=== PATIENT | female | born 1940 | race Hispanic/Latino ===

== ENCOUNTER 2023-07-21 19:04 | Inpatient (IN) | payer OTHER ==
[~2023-07-21] VITALS: Ht 166.4 cm; Wt 90.9 kg
[2023-07-21 20:47] VITALS: BP 150/60; PULSE 48; RESP 18
[2023-07-21 21:00] VITALS: O2SAT 97
[2023-07-21] MEDS ORDERED: 0.9%NACL 10ML VIAL IVP PRN (22:30)
[2023-07-21] MEDS ORDERED: ONDANSETRON 4MG INJ IVP PRN (22:30)
[2023-07-22] VITALS (14 sets, daily range): BP systolic 144–163; BP diastolic 53–76; PULSE 38–80; RESP 14–18; O2SAT 96–97
[2023-07-22] MEDS ORDERED: ONDANSETRON 4MG INJ IV PRN ×2 (00:30→11:00)
[2023-07-22] MEDS ORDERED: MAGNESIUM 2GM PREMIX 50ML 50 ML IV PRN (01:00)
[2023-07-22] MEDS ORDERED: POTASSIUM CHLORIDE 20MEQ/100ML 100 ML IV PRN (01:00)
[2023-07-22] MEDS ORDERED: LEVO88TA7 PO (03:34)
[2023-07-22 04:56] LABS: BASOPHILS # (AUTO) 0.02 K/uL (0.00-0.20); BASOPHILS % (AUTO) 0.3 % (0.0-5.0); EOSINOPHILS # (AUTO) 0.08 K/uL (0.00-0.70); EOSINOPHILS % (AUTO) 1.3 % (0.0-8.0); HEMATOCRIT 40.5 % (36-48); IMMATURE GRANULOCYTE ABSOLUTE 0.02 K/uL (0-1); MEAN CORPUSCULAR HEMOGLOBIN 29.2 pg (27.0-33.0); MEAN CORPUSCULAR HGB CONC 32.1 g/dL (32.0-36.0); MONOCYTES # (AUTO) 0.6 K/uL (0.1-1.0); MONOCYTES % (AUTO) 9.5 % (3.0-13.0); NEUTROPHILS # (AUTO) 3.5 K/uL (1.8-7.7); NEUTROPHILS % (AUTO) 56.6 % (40.0-77.0); PLATELET COUNT (AUTO) 164 K/uL (130-400); RED BLOOD CELL COUNT(AUTO) 4.45 MIL/uL (4.00-5.50); RED CELL DISTRIBUTION WIDTH 13.7 % (11.0-15.5); WHITE BLOOD COUNT (AUTO) 6.2 K/uL (4.8-10.8)
[2023-07-22 05:08] LABS: INR 0.99 (0.85-1.15); PROTHROMBIN TIME 11.5 SEC (9.6-11.6)
[2023-07-22 05:09] LABS: HEMOGLOBIN A1C 6.2 % (4.0-6.0)
[2023-07-22 05:22] LABS: BILIRUBIN,TOTAL 0.5 mg/dL (0.2-1.0); CREATININE 0.9 mg/dL (0.5-1.5); MAGNESIUM 2.1 mg/dL (1.80-2.40); THYROID STIMULATING HORMONE 2.16 uIU/mL (0.36-3.74); TOTAL PROTEIN, SERUM 6.2 g/dL (6.0-8.3)
[2023-07-22 05:24] LABS: B-TYPE NATRIURETIC PEPTIDE 160 pg/mL (0-100)
[2023-07-22] MEDS ORDERED: 0.9%NACL 1000ML 1,000 ML IV SCH (08:00)
[2023-07-22] MEDS ORDERED: 0.9% NACL 250ML 250 ML IV SCH (08:00)
[2023-07-22] MEDS ORDERED: LIDOCAINE HCL 1% MDV 50ML VIAL ONE (08:38)
[2023-07-22] MEDS ORDERED: MIDAZOLAM HCL 1 MG/ML 2ML VIAL ONE ×3 (08:39→09:22)
[2023-07-22] MEDS ORDERED: BUPIVACAINE/PF 0.25% 30ML VIAL IJ ONE (08:39)
[2023-07-22] MEDS ORDERED: MEPERIDINE-PF 25 MG/ML SYG ONE ×3 (08:39→09:22)
[2023-07-22] MEDS ORDERED: IOHEXOL-350 50ML VIAL IV ONE (08:39)
[2023-07-22] MEDS ORDERED: CEFAZOLIN SODIUM 1 GM VIAL ONE (08:43)
[2023-07-22] MEDS: FAMOTIDINE 20MG VIAL IV SCH ×2 (09:00→21:01)
[2023-07-22] MEDS ORDERED: BACITRACIN 1 EACH PACKET TP ONE (10:58)
[2023-07-22] MEDS ORDERED: ACETAMINOPHEN WITH CODEINE 1 TAB TAB PO PRN ×2 (11:00)
[2023-07-22] MEDS ORDERED: TEMAZEPAM 30 MG CAP PO PRN (11:00)
[2023-07-22] MEDS: CEFAZOLIN SODIUM 1 GM VIAL IVPB SCH (17:02)
[2023-07-23] MEDS ORDERED: CEFAZOLIN SODIUM 1 GM VIAL ONE (02:07)
[2023-07-23] MEDS: CEFAZOLIN SODIUM 1 GM VIAL IVPB SCH (02:09)
[2023-07-23 03:59] LABS: HEMATOCRIT 42.4 % (36-48); MEAN CORPUSCULAR HEMOGLOBIN 28.9 pg (27.0-33.0); MEAN CORPUSCULAR HGB CONC 32.3 g/dL (32.0-36.0); MEAN CORPUSCULAR VOLUME 89.5 fL (79-99); RED BLOOD CELL COUNT(AUTO) 4.74 MIL/uL (4.00-5.50); RED CELL DISTRIBUTION WIDTH 13.3 % (11.0-15.5); WHITE BLOOD COUNT (AUTO) 7.1 K/uL (4.8-10.8)
[2023-07-23 04:15] VITALS: BP 164/70; PULSE 77; RESP 18
[2023-07-23 04:22] LABS: ALBUMIN 3.1 g/dL (3.5-5.0); BILIRUBIN,TOTAL 0.8 mg/dL (0.2-1.0); CREATININE 0.8 mg/dL (0.5-1.5); POTASSIUM 3.8 mmol/L (3.5-5.1); TOTAL PROTEIN, SERUM 6.4 g/dL (6.0-8.3)
[2023-07-23] MEDS ORDERED: LEVOTHYROXINE 88 MCG TABLET PO SCH (06:30)
[2023-07-23] MEDS ORDERED: DIPHENHYDRAMINE HCL 25 MG CAPSULE PO PRN (08:00)
[2023-07-23 08:16] VITALS: BP 178/80; PULSE 81; RESP 16
[2023-07-23] MEDS ORDERED: FAMOTIDINE 20MG TAB PO SCH (09:00)
[2023-07-23 12:17] VITALS: BP 165/77; PULSE 83; RESP 16
== END 2023-07-23 15:08 | disposition home or self-care (01) | DRG 244 ==
LOC: EDH 19:04 → DIRECT 19:05 → 2DH 20:25
PROVIDERS: ADMIT Internal Medicine; ATTEND Internal Medicine
PROC: 0JH606Z Insertion of Pacemaker, Dual Chamber into Chest Subcutaneous Tissue and Fascia, Open Approach (ICD-10-PCS; principal; 2023-07-22)
PROC: 02H63JZ Insertion of Pacemaker Lead into Right Atrium, Percutaneous Approach (ICD-10-PCS; 2023-07-22)
PROC: 02HK3JZ Insertion of Pacemaker Lead into Right Ventricle, Percutaneous Approach (ICD-10-PCS; 2023-07-22)
PROC: 4B02XSZ Measurement of Cardiac Pacemaker, External Approach (ICD-10-PCS; 2023-07-22)
DX: I44.1 Atrioventricular block, second degree (principal); E66.9 Obesity, unspecified; I45.10 Unspecified right bundle-branch block; G47.33 Obstructive sleep apnea (adult) (pediatric); R03.0 Elevated blood-pressure reading, without diagnosis of hypertension; E89.0 Postprocedural hypothyroidism; Z80.1 Family history of malignant neoplasm of trachea, bronchus and lung; Z82.49 Family history of ischemic heart disease and other diseases of the circulatory system; Z83.3 Family history of diabetes mellitus; Z90.711 Acquired absence of uterus with remaining cervical stump; Z98.42 Cataract extraction status, left eye; Z91.041 Radiographic dye allergy status; Z68.32 Body mass index [BMI] 32.0-32.9, adult
CPT/HCPCS: 33208; 36415; 71045; 80053; 80061; 83036; 83735; 83880; 84443; 85025; 85027; 85610; 85730; 93005; 99156; 99157; C1769; C1785; C1894; G0378; J0690; J2175; J2250; J3480; J3490; Q0163; Q9967; C1898; J0665